=== PATIENT | female | born 1950 | race Caucasian/White ===

== ENCOUNTER 2016-12-21 09:56 | Outpatient (CLI) | payer MEDICARE, OTHER ==
[2014-10-27 12:04] VITALS: BP 113/63
[2016-12-21 10:28] LABS: BASOPHILS % 0.6 (0.0-1.5); EOSINOPHILS % 1.7 % (0.0-6.8); LYMPHOCYTES # 0.9 # k/uL (0.6-4.0); MEAN CORPUSCULAR HEMOGLOBIN 28.6 pg (28.0-34.0); MONOCYTES # 0.2 # k/uL (0.0-0.9); MONOCYTES % 6.1 % (0.0-11.0); NEUTROPHILS # 1.8 # k/uL (1.4-7.7)
[2016-12-21 10:43] LABS: eGFR (African) > 60; eGFR (Non-African) > 60
== END 2016-12-21 10:00 ==
LOC: LAB 09:56
PROVIDERS: ATTEND Specialist
DX: Z51.81 Encounter for therapeutic drug level monitoring (principal); Z79.899 Other long term (current) drug therapy
CPT/HCPCS: 36415; 80053; 85025

== ENCOUNTER 2017-07-12 09:41 | Outpatient (CLI) | payer MEDICARE, OTHER ==
[2014-10-27 12:04] VITALS: BP 113/63
[2017-07-12 10:00] LABS: BASOPHILS % 0.7 (0.0-1.5); EOSINOPHILS % 2.7 % (0.0-6.8); MEAN CORPUSCULAR HEMOGLOBIN 28.1 pg (28.0-34.0); MEAN CORPUSCULAR VOLUME 87.9 fl (80.0-100.0); MONOCYTES % 7.3 % (0.0-11.0); NEUTROPHILS # 2.1 # k/uL (1.4-7.7)
[2017-07-12 10:33] LABS: eGFR (African) > 60; eGFR (Non-African) > 60
== END 2017-07-12 09:42 ==
LOC: LAB 09:41
PROVIDERS: ATTEND Specialist
DX: Z79.899 Other long term (current) drug therapy (principal)
CPT/HCPCS: 36415; 80053; 85025

== ENCOUNTER → 2017-10-21 | Outpatient (CLI) | payer MEDICARE, OTHER ==
[2014-10-27 12:04] VITALS: BP 113/63
[2017-10-21 09:13] LABS: EOSINOPHILS % 3.5 % (0.0-6.8); MEAN CORPUSCULAR VOLUME 91.1 fl (80.0-100.0); MONOCYTES % 7.3 % (0.0-11.0); NEUTROPHILS # 1.6 # k/uL (1.4-7.7)
[2017-10-21 09:27] LABS: eGFR (African) > 60; eGFR (Non-African) > 60
== END ==
LOC: LAB 08:47
PROVIDERS: ATTEND Nurse Practitioner
DX: Z79.899 Other long term (current) drug therapy (principal)
CPT/HCPCS: 36415; 80053; 85025

== ENCOUNTER 2017-11-03 09:49 | Outpatient (CLI) | payer MEDICARE, OTHER ==
[2014-10-27 12:04] VITALS: BP 113/63
[2017-11-03 10:32] LABS: MEAN CORPUSCULAR HEMOGLOBIN 29.3 pg (28.0-34.0); MEAN CORPUSCULAR VOLUME 90.4 fl (80.0-100.0)
[2017-11-03 10:49] LABS: eGFR (African) > 60; eGFR (Non-African) > 60
--- NOTE | 2017-11-03 12:53 | Diagnostic Imaging Report ---
JENNIFER KAT [facility] [id number] [facility] [address] [place] [address]. [id number] Report Submission Date: Nov 03, 2017 10:23:28 AM CORPORATE INTERN Patient Study Name: TAHIRA ROLLINS Date: Nov 03, 2017 10:06:51 AM CORPORATE INTERN Modality Type: CR Gender: F Description: CHEST : 52 Institution: [facility] Physician: JENNIFER KAT Examination: PA and lateral chest. History: Evaluate lung bhatti. Comparison exam: None provided Findings: PA lateral chest demonstrate a normal cardiac and mediastinal silhouette. No focal infiltrate. No blunting of the costophrenic margins. Osseous structures are appropriate for age. Impression: No acute pulmonary process. Electronically signed on Nov 03, 2017 10:23:28 AM CORPORATE INTERN by: Hima DE LOS SANTOS
== END 2017-11-03 09:50 ==
LOC: RT 09:49
PROVIDERS: ATTEND Family Medicine
DX: R07.9 Chest pain, unspecified (principal)
CPT/HCPCS: 36415; 71020; 80053; 80061; 85027

== ENCOUNTER 2017-12-12 08:40 | Outpatient (CLI) | payer MEDICARE, OTHER ==
[2014-10-27 12:04] VITALS: BP 113/63
[2017-12-12 09:06] LABS: EOSINOPHILS % 3.4 % (0.0-6.8); MEAN CORPUSCULAR HEMOGLOBIN 29.6 pg (28.0-34.0); MEAN CORPUSCULAR VOLUME 90.5 fl (80.0-100.0); MONOCYTES % 6.4 % (0.0-11.0); NEUTROPHILS # 1.8 # k/uL (1.4-7.7)
[2017-12-12 09:46] LABS: eGFR (African) > 60; eGFR (Non-African) > 60
== END 2017-12-12 08:42 ==
LOC: LAB 08:40
PROVIDERS: ATTEND Nurse Practitioner
DX: Z79.899 Other long term (current) drug therapy (principal)
CPT/HCPCS: 36415; 80053; 85025

== ENCOUNTER 2018-01-27 09:20 | Outpatient (CLI) | payer MEDICARE, OTHER ==
[2014-10-27 12:04] VITALS: BP 113/63
[2018-01-27 09:33] LABS: BASOPHILS % 1.1 (0.0-1.5); EOSINOPHILS % 2.4 % (0.0-6.8); MEAN CORPUSCULAR HEMOGLOBIN 28.8 pg (28.0-34.0); MEAN CORPUSCULAR VOLUME 90.3 fl (80.0-100.0); MONOCYTES % 7.7 % (0.0-11.0); NEUTROPHILS # 1.3 # k/uL (1.4-7.7)
[2018-01-27 10:09] LABS: eGFR (African) > 60; eGFR (Non-African) > 60
== END 2018-01-27 09:21 ==
LOC: LAB 09:20
PROVIDERS: ATTEND Nurse Practitioner
DX: Z79.899 Other long term (current) drug therapy (principal)
CPT/HCPCS: 36415; 80053; 85025

== ENCOUNTER 2018-03-06 08:42 | Outpatient (CLI) | payer MEDICARE, OTHER ==
[2014-10-27 12:04] VITALS: BP 113/63
[2018-03-06 09:06] LABS: BASOPHILS % 0.4 (0.0-1.5); EOSINOPHILS % 2.7 % (0.0-6.8); MEAN CORPUSCULAR HEMOGLOBIN 29.5 pg (28.0-34.0); MEAN CORPUSCULAR VOLUME 92.4 fl (80.0-100.0); MONOCYTES % 6.9 % (0.0-11.0)
[2018-03-06 09:32] LABS: eGFR (African) > 60; eGFR (Non-African) > 60
== END 2018-03-06 12:15 ==
LOC: LAB 08:42
PROVIDERS: ATTEND Nurse Practitioner
DX: Z79.899 Other long term (current) drug therapy (principal)
CPT/HCPCS: 36415; 80053; 85025

== ENCOUNTER 2018-05-01 13:54 | Outpatient (CLI) | payer MEDICARE, OTHER ==
[2014-10-27 12:04] VITALS: BP 113/63
[2018-05-01 14:10] LABS: BASOPHILS % 0.6 (0.0-1.5); EOSINOPHILS % 1.9 % (0.0-6.8); MEAN CORPUSCULAR HEMOGLOBIN 31.4 pg (28.0-34.0); MEAN CORPUSCULAR VOLUME 93.7 fl (80.0-100.0); MONOCYTES % 7.4 % (0.0-11.0); NEUTROPHILS # 2.7 # k/uL (1.4-7.7)
[2018-05-01 15:17] LABS: eGFR (African) > 60; eGFR (Non-African) > 60
== END 2018-05-01 14:00 ==
LOC: LAB 13:54
PROVIDERS: ATTEND Nurse Practitioner
DX: Z79.899 Other long term (current) drug therapy (principal)
CPT/HCPCS: 36415; 80053; 85025

== ENCOUNTER 2018-06-20 10:11 | Outpatient (CLI) | payer MEDICARE, OTHER ==
[2014-10-27 12:04] VITALS: BP 113/63
[2018-06-20 11:18] LABS: BASOPHILS % 0.6 (0.0-1.5); EOSINOPHILS % 1.6 % (0.0-6.8); MEAN CORPUSCULAR VOLUME 90.8 fl (80.0-100.0); MONOCYTES % 6.1 % (0.0-11.0)
[2018-06-20 11:33] LABS: eGFR (Non-African) > 60
== END 2018-06-20 10:12 ==
LOC: LAB 10:11
PROVIDERS: ATTEND Nurse Practitioner
DX: Z79.899 Other long term (current) drug therapy (principal)
CPT/HCPCS: 36415; 80053; 85025

== ENCOUNTER 2018-07-27 10:54 | Outpatient (CLI) | payer MEDICARE, OTHER ==
[2014-10-27 12:04] VITALS: BP 113/63
[2018-07-27 13:40] LABS: eGFR (Non-African) > 60
[2018-07-27 15:39] LABS: MEAN CORPUSCULAR HEMOGLOBIN 28.2 pg (28.0-34.0)
[2018-07-27 15:40] LABS: BASOPHILS % 0.2 (0.0-1.5); MONOCYTES % 8.9 % (0.0-11.0)
== END 2018-07-27 10:55 ==
LOC: LAB 10:54
PROVIDERS: ATTEND Nurse Practitioner
DX: Z79.899 Other long term (current) drug therapy (principal)
CPT/HCPCS: 36415; 80053; 85025

== ENCOUNTER 2018-09-05 11:07 | Outpatient (CLI) | payer MEDICARE, OTHER ==
[2014-10-27 12:04] VITALS: BP 113/63
[2018-09-05 11:22] LABS: MEAN CORPUSCULAR HEMOGLOBIN 27.1 pg (28.0-34.0)
[2018-09-05 11:23] LABS: BASOPHILS % 0.1 (0.0-1.5); EOSINOPHILS % 1.5 % (0.0-6.8); MONOCYTES % 6.1 % (0.0-11.0)
[2018-09-05 11:47] LABS: eGFR (Non-African) > 60
== END 2018-09-05 11:10 ==
LOC: LAB 11:07
PROVIDERS: ATTEND Nurse Practitioner
DX: G62.9 Polyneuropathy, unspecified (principal); E55.9 Vitamin D deficiency, unspecified
CPT/HCPCS: 36415; 80053; 82306; 85025

== ENCOUNTER 2018-10-18 12:58 | Outpatient (CLI) | payer MEDICARE, OTHER ==
[2014-10-27 12:04] VITALS: BP 113/63
[2018-10-18 13:08] LABS: MEAN CORPUSCULAR HEMOGLOBIN 26.7 pg (28.0-34.0)
[2018-10-18 13:09] LABS: BASOPHILS % 0.2 (0.0-1.5); EOSINOPHILS % 1.7 % (0.0-6.8); MONOCYTES % 7.6 % (0.0-11.0); NEUTROPHILS # 2.3 # k/uL (1.4-7.7)
[2018-10-18 13:59] LABS: eGFR (Non-African) > 60
== END 2018-10-18 13:00 ==
LOC: LAB 12:58
PROVIDERS: ATTEND Nurse Practitioner
DX: G62.9 Polyneuropathy, unspecified (principal)
CPT/HCPCS: 36415; 80053; 85025

== ENCOUNTER 2018-11-20 15:32 | Outpatient (CLI) | payer MEDICARE, OTHER ==
[2014-10-27 12:04] VITALS: BP 113/63
[2018-11-20 15:48] LABS: BASOPHILS % 0.3 (0.0-1.5); EOSINOPHILS % 1.6 % (0.0-6.8); MEAN CORPUSCULAR HEMOGLOBIN 27.3 pg (28.0-34.0); MONOCYTES % 6.9 % (0.0-11.0); NEUTROPHILS # 2.7 # k/uL (1.4-7.7)
[2018-11-20 15:59] LABS: eGFR (Non-African) 35
== END 2018-11-20 15:33 ==
LOC: LAB 15:32
PROVIDERS: ATTEND Nurse Practitioner
DX: G62.9 Polyneuropathy, unspecified (principal)
CPT/HCPCS: 36415; 80053; 85025

== ENCOUNTER 2018-12-27 11:15 | Outpatient (CLI) | payer MEDICARE, OTHER ==
[2014-10-27 12:04] VITALS: BP 113/63
[2018-12-27 11:57] LABS: BASOPHILS % 0.6 (0.0-1.5); EOSINOPHILS % 1.6 % (0.0-6.8); MEAN CORPUSCULAR HEMOGLOBIN 28.2 pg (28.0-34.0); NEUTROPHILS # 2.1 # k/uL (1.4-7.7)
[2018-12-27 12:07] LABS: eGFR (Non-African) > 60
== END 2018-12-27 11:17 ==
LOC: LAB 11:15
PROVIDERS: ATTEND Nurse Practitioner
DX: G62.9 Polyneuropathy, unspecified (principal)
CPT/HCPCS: 36415; 80053; 85025

== ENCOUNTER 2019-01-29 07:22 | Outpatient (CLI) | payer MEDICARE, OTHER ==
[2014-10-27 12:04] VITALS: BP 113/63
[2019-01-29 08:06] LABS: eGFR (Non-African) > 60
[2019-01-29 08:44] LABS: BASOPHILS % 0.4 % (0.0-1.5); EOSINOPHILS % 1.4 % (0.0-6.8); MEAN CORPUSCULAR HEMOGLOBIN 27.9 pg (28.0-34.0); MONOCYTES % 6.8 % (0.0-11.0)
== END 2019-01-29 07:23 ==
LOC: LAB 07:22
PROVIDERS: ATTEND Nurse Practitioner
DX: G62.9 Polyneuropathy, unspecified (principal)
CPT/HCPCS: 36415; 80053; 85025

== ENCOUNTER 2019-05-23 12:40 | Outpatient (CLI) | payer MEDICARE, OTHER ==
[2014-10-27 12:04] VITALS: BP 113/63
[2019-05-23 12:56] LABS: BASOPHILS % 0.2 % (0.0-1.5)
[2019-05-23 13:24] LABS: eGFR (Non-African) > 60
== END 2019-05-23 12:43 ==
LOC: LAB 12:40
PROVIDERS: ATTEND Nurse Practitioner
DX: G43.009 Migraine without aura, not intractable, without status migrainosus (principal); Z79.899 Other long term (current) drug therapy
CPT/HCPCS: 36415; 80053; 85025

== ENCOUNTER 2019-07-18 11:08 | Outpatient (CLI) | payer MEDICARE, OTHER ==
[2014-10-27 12:04] VITALS: BP 113/63
[2019-07-30 13:01] LABS: BASOPHILS % 0.4 % (0.0-1.5); NEUTROPHILS # 1.5 # k/uL (1.4-7.7)
[2019-07-30 13:02] LABS: eGFR (Non-African) > 60
== END 2019-07-18 11:15 ==
LOC: LAB 11:08
PROVIDERS: ATTEND Nurse Practitioner
DX: G43.909 Migraine, unspecified, not intractable, without status migrainosus (principal); Z79.899 Other long term (current) drug therapy
CPT/HCPCS: 36415; 80053; 85025

== ENCOUNTER 2019-09-06 09:25 | Outpatient (CLI) | payer MEDICARE, OTHER ==
[2014-10-27 12:04] VITALS: BP 113/63
[2019-09-06 10:09] LABS: BASOPHILS % 0.3 % (0.0-1.5); NEUTROPHILS # 1.3 # k/uL (1.4-7.7)
[2019-09-06 10:15] LABS: eGFR (Non-African) > 60
== END 2019-09-06 09:30 ==
LOC: LAB 09:25
PROVIDERS: ATTEND Nurse Practitioner
DX: G43.009 Migraine without aura, not intractable, without status migrainosus (principal); Z79.899 Other long term (current) drug therapy
CPT/HCPCS: 36415; 80053; 85025

== ENCOUNTER 2019-10-18 12:55 | Outpatient (CLI) | payer MEDICARE, OTHER ==
[2014-10-27 12:04] VITALS: BP 113/63
[2019-10-18 13:31] LABS: eGFR (Non-African) > 60
[2019-10-18 15:26] LABS: BASOPHILS % 0.3 % (0.0-1.5); NEUTROPHILS # 1.7 # k/uL (1.4-7.7)
== END 2019-10-18 13:00 ==
LOC: LAB 12:55
PROVIDERS: ATTEND Nurse Practitioner
DX: G43.009 Migraine without aura, not intractable, without status migrainosus (principal); Z79.899 Other long term (current) drug therapy
CPT/HCPCS: 36415; 80053; 85025